=== PATIENT | male | born 1990 | race Caucasian/White ===

== ENCOUNTER 2019-03-23 19:31 | Emergency (ER) | payer MEDICAID ==
[~2019-03-23] VITALS: Ht 177.8 cm; Wt 93.4 kg
[2019-03-23 19:43] VITALS: BP 145/87
--- NOTE | 2019-03-23 19:50 | NUR ---
EKG PERFORMED IN TRIAGE ROOM
--- NOTE | 2019-03-23 21:13 | NUR ---
PT TAKEN TO RAD VIA W/C
--- NOTE | 2019-03-23 21:25 | NUR ---
PT AMBULATED TO BED 9
--- NOTE | 2019-03-23 21:30 | NUR ---
29 YO M BIB SELF AND GIRLFRIEND PRESENTS TO ED C/O 02/03 "PINCHING" LEFT SIDE CHEST PAIN OFF AND ON SINCE THIS MORNING. PT STATES "IT HURTS WHEN I BREATHE". PT DENIES RECENT ILLNESS, COUGH, OR MUSCULAR EXERCISE. PT ALSO REPORTS "I WAS IN THE MIDDLE OF HAVING DINNER WHEN I STARTED TO FEEL LIGHTHEADED LIKE I WAS ABOUT TO PASS OUT AND THEN I THREW UP A LITTLE. I CAME HERE AFTER THAT". PT DENIES N/V AND DIZZINESS AT THIS TIME. PT STATES HE FEELS SOB. -- PT AWAKE, A/O X 4. CALM, COOPERATIVE. ANSWERING QUESTIONS APPROPRIATELY. BEHAVIOR AGE APPROPRIATE. -- SKIN PINK, WARM, DRY. BREATHING EVEN, UNLABORED. NO S/SX RESPIRATORY DISTRESS. SPO2 97% ON RA. PMH-- DENIES RX-- DENIES
--- NOTE | 2019-03-23 21:54 | NUR ---
DR. WHITLEY EVALUATING AT BEDSIDE.
[2019-03-23] MEDS ORDERED: KETOROLAC 15 MG/ML VIAL IM ONE (22:20)
[2019-03-23 23:28] LABS: BASOPHILS # (AUTO) 0.1 K/uL (0.00-0.22); BASOPHILS % (AUTO) 1.1 % (0.0-2.0); EOSINOPHILS # (AUTO) 0.1 K/uL (0-0.4); EOSINOPHILS % (AUTO) 1.9 % (0.0-4.0); HEMATOCRIT 45.1 % (36-52); HEMOGLOBIN 15.1 g/dL (12.0-18.0); LYMPHOCYTES # (AUTO) 2.7 K/uL (2.0-11.5); MEAN CORPUSCULAR HEMOGLOBIN 30 pg (27-31); MEAN CORPUSCULAR HGB CONC 33 g/dL (33-37); MEAN CORPUSCULAR VOLUME 89.8 fL (80-94); MONOCYTES # (AUTO) 0.5 K/uL (0.8-1.0); MONOCYTES % (AUTO) 7.2 % (1.7-9.3); NEUTROPHILS # (AUTO) 3.6 K/uL (1.8-7.7); NEUTROPHILS % (AUTO) 51.8 % (42.2-75.2); PLATELET COUNT (AUTO) 161 K/uL (140-450); RED BLOOD CELL COUNT(AUTO) 5.03 MIL/uL (4.20-6.10); RED CELL DISTRIBUTION WIDTH 13.1 % (11.6-13.7)
--- NOTE | 2019-03-23 23:30 | NUR ---
PT RESTING COMFORTABLY IN BED WITH VSS. PARTNER AT BEDSIDE. NO COMPLAINTS/CONCERNS AT THIS TIME. SKIN PINK, WARM, DRY. BREATHING EVEN, UNLABORED.
[2019-03-23 23:41] LABS: ANION GAP 13.7 (8-16); CARBON DIOXIDE 26.4 mmol/L (21-32); POTASSIUM 4.1 mmol/L (3.5-5.1)
[2019-03-23 23:47] LABS: ALBUMIN 3.7 g/dL (3.4-5.0); TOTAL BILIRUBIN 0.5 mg/dL (0.0-1.0)
[2019-03-24 00:25] VITALS: BP 115/74
--- NOTE | 2019-03-24 00:25 | NUR ---
Patient discharged with v/s stable. Written and verbal after care instructions given and explained. Patient alert, oriented and verbalized understanding of instructions. Ambulatory with steady gait. All questions addressed prior to discharge. ID band removed. Patient advised to follow up with PMD. Rx of Pepcid and Toradol given. Patient educated on indication of medication including possible reaction and side effects. Opportunity to ask questions provided and answered.
== END 2019-03-24 00:25 | disposition home or self-care (01) ==
LOC: MED 19:31
DX: R07.89 Other chest pain (principal); R42 Dizziness and giddiness
CPT/HCPCS: 36415; 71045; 80053; 83690; 84484; 85025; 93005; 96372; 99284; J1885

== ENCOUNTER 2021-05-21 00:25 | Emergency (ER) | payer MEDICAID ==
[~2021-05-21] VITALS: Ht 175.3 cm; Wt 109.9 kg
[2021-05-21 00:31] VITALS: BP 163/106
--- NOTE | 2021-05-21 00:35 | NUR ---
PT TAKEN TO BED 9
--- NOTE | 2021-05-21 00:48 | NUR ---
ermd flammia at bedside for examination
[2021-05-21] MEDS ORDERED: ACET-10509 PO (00:51)
[2021-05-21] MEDS ORDERED: IBUP-2213 PO (00:51)
[2021-05-21] MEDS ORDERED: CYCL-711 PO (00:51)
[2021-05-21] MEDS ORDERED: LID5T TP (00:51)
--- NOTE | 2021-05-21 00:52 | NUR ---
PT PRESENTS TO THE ED WITH C/O LOWER BACK PAIN. PT REPORTS HAVING PAIN FOR A FEW WEEKS BUT PAIN BECAME MORE INTENSE TODAY. PT RATES PAIN 10/10. PT DENIES ANY TRAUMA OR FALLS. PT DENIES NUMBING OR TINGLING. PT DENIES OTHER MEDICAL HX
[2021-05-21] MEDS ORDERED: IBUPROFEN 600 MG TAB PO ONE (00:55)
[2021-05-21] MEDS ORDERED: CYCLOBENZAPRINE 10 MG TAB PO ONE (00:55)
[2021-05-21] MEDS ORDERED: ACETAMINOPHEN EXTRA STRENGTH 500 MG TAB PO ONE (00:55)
[2021-05-21 01:16] VITALS: BP 123/77
--- NOTE | 2021-05-21 01:23 | NUR ---
Patient discharged with v/s stable. Written and verbal after care instructions given and explained. Patient alert, oriented and verbalized understanding of instructions. Ambulatory with steady gait. All questions addressed prior to discharge. ID band removed. Patient advised to follow up with PMD. Rx of ACETAMINOPHEN, FLEXERIL, IBUPROFEN, LIDOCAINE given. Patient educated on indication of medication including possible reaction and side effects. Opportunity to ask questions provided and answered.
== END 2021-05-21 01:23 | disposition home or self-care (01) ==
LOC: MED 00:25
DX: S39.012A Strain of muscle, fascia and tendon of lower back, initial encounter (principal); F17.200 Nicotine dependence, unspecified, uncomplicated; Z79.899 Other long term (current) drug therapy; X58.XXXA Exposure to other specified factors, initial encounter; Y93.89 Activity, other specified; Y92.89 Other specified places as the place of occurrence of the external cause; Y99.8 Other external cause status
CPT/HCPCS: 99284

== ENCOUNTER 2021-05-21 10:02 | Emergency (ER) | payer MEDICAID ==
[~2021-05-21] VITALS: Ht 175.3 cm; Wt 109.8 kg
[~2021-05-21 10:02] MED LIST: ACET-10509 PO; CYCL-711 PO; IBUP-2213 PO; LID5T TP
[2021-05-21 10:07] VITALS: BP 151/88
[2021-05-21] MEDS ORDERED: DIAZEPAM PFS 10 MG/2 ML SYR IM ONE (10:25)
[2021-05-21] MEDS ORDERED: DEXAMETHASONE 10 MG/ML VIAL IM ONE (10:25)
--- NOTE | 2021-05-21 10:29 | NUR ---
31 Y/O M BIB SPOUSE FROM HOME, PATIENT PRESENTS TO ED WITH LUMBAR REGION, LOWER BACK PAIN FOR 10 DAYS. PT STATES HE WAS SEEN HERE LAST NIGHT FOR SAME C/O, WAS GIVEN MEDICATION, NO RELIEF. DENIES N/V/D; SKIN IS PINK/WARM/DRY; AAOX4, UNABLE TO AMBULATE AT THIS TIME, NEEDS ASSISTANCE TO STAND OR LAY DOWN, STATES PAIN IS THE SAME REGARDLESS OF REPOSITIONING; LUNGS CLEAR BL; HR EVEN AND REGULAR; PT DENIES ANY FEVER, CP, SOB, OR COUGH AT THIS TIME; PATIENT STATES PAIN OF 10/10 AT THIS TIME; VSS; PATIENT POSITIONED FOR COMFORT; HOB ELEVATED; BEDRAILS UP X2; BED DOWN. ER MD MADE AWARE OF PT STATUS. DENIES SYNCOPE, LOC, OR INJURY. PMH: DENIES MED: CYCLOBENZAPRINE, TYLENOL, LIDODERM NKA
--- NOTE | 2021-05-21 10:37 | NUR ---
PT TAKEN VIA WHEELCHAIR TO XRAY
--- NOTE | 2021-05-21 10:58 | NUR ---
PT RETURNED FROM XRAY
[2021-05-21] MEDS ORDERED: MORPHINE SULFATE 5 MG/ML VIAL IM ONE (11:45)
[2021-05-21 12:38] VITALS: BP 151/88
--- NOTE | 2021-05-21 12:38 | NUR ---
Patient discharged with v/s stable. Written and verbal after care instructions given and explained. Patient verbalized understanding. Ambulatory with SPOUSE to car. All questions addressed prior to discharge. Advised to follow up with PMD.
== END 2021-05-21 12:38 | disposition home or self-care (01) ==
LOC: MED 10:02
DX: M54.17 Radiculopathy, lumbosacral region (principal); Z79.899 Other long term (current) drug therapy
CPT/HCPCS: 72100; 96372; 99284; J1100; J2270; J3360; Q0092

== ENCOUNTER 2023-09-20 12:12 | Emergency (ER) | payer SELFPAY ==
[~2023-09-20] VITALS: Ht 180.3 cm; Wt 113.9 kg
[2023-09-20 12:39] VITALS: BP 147/95; PULSE 83; RESP 20; TEMP 98; O2SAT 96
[2023-09-20] MEDS: KETOROLAC 30 MG/ML VIAL IM ONE (14:17)
[2023-09-20 14:31] LABS: BASOPHILS # (AUTO) 0.1 K/uL (0.00-0.22); BASOPHILS % (AUTO) 1.4 % (0.0-2.0); EOSINOPHILS # (AUTO) 0.1 K/uL (0-0.4); EOSINOPHILS % (AUTO) 1.3 % (0.0-4.0); HEMATOCRIT 44.3 % (36-52); HEMOGLOBIN 15.2 g/dL (12.0-18.0); LYMPHOCYTES % (AUTO) 29.6 % (20.5-51.1); MEAN CORPUSCULAR HEMOGLOBIN 30 pg (27-31); MEAN CORPUSCULAR HGB CONC 34 g/dL (33-37); MONOCYTES # (AUTO) 0.5 K/uL (0.8-1.0); MONOCYTES % (AUTO) 6.7 % (1.7-9.3); NEUTROPHILS # (AUTO) 4.1 K/uL (1.8-7.7); PLATELET COUNT (AUTO) 205 K/uL (140-450); RED BLOOD CELL COUNT(AUTO) 5.15 MIL/uL (4.20-6.10); RED CELL DISTRIBUTION WIDTH 13.4 % (11.6-13.7); WHITE BLOOD COUNT (AUTO) 6.7 K/uL (4.8-10.8)
[2023-09-20 14:42] LABS: ANION GAP 14.8 (8-16); CALCIUM 9.6 mg/dL (8.5-10.1); CARBON DIOXIDE 26.9 mmol/L (21-32); CREATININE 0.9 mg/dL (0.6-1.3); POTASSIUM 3.7 mmol/L (3.5-5.1)
[2023-09-20 14:49] LABS: ALANINE AMINOTRANSFERASE 47 U/L (12-78); ALBUMIN 4.3 g/dL (3.4-5.0); ALKALINE PHOSPHATASE 92 U/L (50-136); ASPARTATE AMINOTRANSFERASE 31 U/L (15-37); BILIRUBIN,DIRECT 0.1 mg/dL (0.0-0.3); LIPASE 37 U/L (16-77); TOTAL BILIRUBIN 0.4 mg/dL (0.0-1.0); TOTAL PROTEIN, SERUM 8.4 g/dL (6.4-8.2)
[2023-09-20 14:50] LABS: APPEARANCE,URINE CLEAR (CLEAR); BILIRUBIN,URINE NEGATIVE (NEGATIVE); BLOOD, URINE NEGATIVE (NEGATIVE); COLOR,URINE YELLOW (YELLOW); LEUKOCYTE ESTERASE ,URINE NEGATIVE (NEGATIVE); NITRITE, URINE NEGATIVE (NEGATIVE); PROTEIN,URINE NEGATIVE (NEGATIVE); UGLUCOSE NEGATIVE (NEGATIVE); UROBILINOGEN,URINE 0.2 EU/dL (0.2 - 1)
[2023-09-20] MEDS ORDERED: CYCL-711 PO (15:09)
[2023-09-20] MEDS ORDERED: METH4TAB1 PO (15:09)
[2023-09-20] MEDS ORDERED: IBUP-2218 PO (15:09)
== END 2023-09-20 15:21 | disposition home or self-care (01) ==
LOC: MED 12:12
DX: S39.012A Strain of muscle, fascia and tendon of lower back, initial encounter (principal); R07.9 Chest pain, unspecified; Z79.899 Other long term (current) drug therapy; X58.XXXA Exposure to other specified factors, initial encounter; Y93.89 Activity, other specified; Y92.89 Other specified places as the place of occurrence of the external cause; Y99.8 Other external cause status
CPT/HCPCS: 36415; 71045; 80048; 80076; 81003; 83690; 84484; 85025; 93005; 96372; 99285; J1885